=== PATIENT | male | born 1965 | race Two or more races ===

== ENCOUNTER 2016-08-24 15:29 | Outpatient (CLI) | payer BC ==
[2016-08-24 16:48] LABS: BASOPHILS % (AUTO) 0.5 % (0.0-2.0); EOSINOPHILS # (AUTO) 0.4 /CMM (0.0-0.7); EOSINOPHILS % (AUTO) 4.8 % (0.0-6.0); HEMATOCRIT 51 % (39-51); HEMOGLOBIN 16.7 g/dL (13.5-17.5); LYMPHOCYTES # (AUTO) 2.8 /CMM (0.8-4.8); LYMPHOCYTES % (AUTO) 33.1 % (20.0-44.0); MEAN CORPUSCULAR HEMOGLOBIN 30 PG (26.0-33.0); MEAN CORPUSCULAR HGB CONC 33 g/dl (31.0-36.0); MEAN CORPUSCULAR VOLUME 89 fL (80-96); MONOCYTES # (AUTO) 0.4 /CMM (0.1-1.30); MONOCYTES % (AUTO) 4.8 % (2.0-12.0); NEUTROPHILS # (AUTO) 4.8 /CMM (1.8-8.9); NEUTROPHILS % (AUTO) 56.8 % (43.0-81.0); PLATELET COUNT (AUTO) 227 /CMM (150-450); RED BLOOD CELL COUNT(AUTO) 5.67 MIL/uL (4.5-6.0); WHITE BLOOD COUNT (AUTO) 8.4 K/uL (4.3-11.0)
[2016-08-24 17:14] LABS: ADD UA MICROSCOPIC NO; KETONES,URINE NEGATIVE (NEGATIVE); LEUKOCYTE ESTERASE ,URINE NEGATIVE (NEGATIVE); PH,URINE 5.5 (5.0-8.0)
[2016-08-24 17:17] LABS: ALBUMIN 4.3 g/dL (3.4-5.0); BILIRUBIN,TOTAL 0.4 mg/dL (0.2-1.0); CALCIUM, SERUM 9.1 mg/dL (8.5-10.1); POTASSIUM 3.8 mmol/L (3.5-5.1); TOTAL PROTEIN, SERUM 8.5 g/dL (6.4-8.2)
[2016-08-24 17:27] LABS: THYROID STIMULATING HORMONE 0.716 uIU/mL (0.358-3.74)
[2016-08-24 20:45] LABS: HIV-1 p24 ANTIGEN NON REACTIVE (NONREACTIVE); HIV-1/2 ANTIBODY NON REACTIVE (NONREACTIVE)
[2016-08-25 08:14] LABS: VIT D, 25-HYDROXY 26.6 ng/mL (30.0-100.0)
[2016-08-25 09:46] LABS: HEPATITIS C VIRUS AB <0.1 s/co ratio (0.0-0.9)
[2016-08-25 10:26] LABS: *CREATININE RANDOM URINE 167.1 mg/dL (Not Estab.); *MICROALBUMIN/CREATININE RATIO 4.6 mg/g creat (0.0-30.0)
[2016-08-25 13:24] LABS: *HIV 1 AB Negative (Negative); *HIV 2 AB Negative (Negative)
== END 2016-08-24 23:59 | disposition home or self-care (01) ==
LOC: LAB 15:29
PROVIDERS: ATTEND Family Medicine
DX: E11.40 Type 2 diabetes mellitus with diabetic neuropathy, unspecified (principal); E55.9 Vitamin D deficiency, unspecified; K76.0 Fatty (change of) liver, not elsewhere classified
CPT/HCPCS: 36415; 80053-TC; 80061-TC; 81000-TC; 82306; 82728-TC; 82746; 83540-TC; 84436-TC; 84443-TC; 85025-TC; 86701; 86706; 86709-TC; 86803; 87340

== ENCOUNTER → 2016-09-18 | Outpatient (CLI) | payer BC | LOC: US 08:50 | PROVIDERS: ATTEND Family Medicine | DX: K76.0 Fatty (change of) liver, not elsewhere classified (principal); R16.1 Splenomegaly, not elsewhere classified | CPT/HCPCS: 76700-TC ==

== ENCOUNTER 2017-01-29 09:07 | Outpatient (CLI) | payer BC ==
[2017-01-29 10:21] LABS: BASOPHILS % (AUTO) 0.6 % (0.0-2.0); EOSINOPHILS # (AUTO) 0.5 /CMM (0.0-0.7); EOSINOPHILS % (AUTO) 6.5 % (0.0-6.0); HEMATOCRIT 47 % (39-51); LYMPHOCYTES # (AUTO) 2.7 /CMM (0.8-4.8); LYMPHOCYTES % (AUTO) 36.2 % (20.0-44.0); MEAN CORPUSCULAR HEMOGLOBIN 30 PG (26.0-33.0); MEAN CORPUSCULAR HGB CONC 34 g/dl (31.0-36.0); MEAN CORPUSCULAR VOLUME 88 fL (80-96); MONOCYTES # (AUTO) 0.5 /CMM (0.1-1.30); MONOCYTES % (AUTO) 6.3 % (2.0-12.0); NEUTROPHILS # (AUTO) 3.8 /CMM (1.8-8.9); NEUTROPHILS % (AUTO) 50.4 % (43.0-81.0); PLATELET COUNT (AUTO) 214 /CMM (150-450); RED BLOOD CELL COUNT(AUTO) 5.32 MIL/uL (4.5-6.0); WHITE BLOOD COUNT (AUTO) 7.5 K/uL (4.3-11.0)
[2017-01-29 10:24] LABS: ALBUMIN 4.2 g/dL (3.4-5.0); BILIRUBIN,TOTAL 0.4 mg/dL (0.2-1.0); CALCIUM, SERUM 8.7 mg/dL (8.5-10.1); CREATININE 0.8 mg/dL (0.6-1.3); POTASSIUM 4.1 mmol/L (3.5-5.1); TOTAL PROTEIN, SERUM 8.2 g/dL (6.4-8.2)
[2017-01-29 10:25] LABS: APPEARANCE,URINE CLEAR (CLEAR); BILIRUBIN,URINE NEGATIVE (NEGATIVE); BLOOD, URINE NEGATIVE Ery/uL (NEGATIVE); COLOR,URINE YELLOW (YELLOW); KETONES,URINE NEGATIVE (NEGATIVE); LEUKOCYTE ESTERASE ,URINE NEGATIVE (NEGATIVE); NITRITE, URINE NEGATIVE (NEGATIVE); PH,URINE 5.5 (5.0-8.0); PROTEIN,URINE NEGATIVE (NEGATIVE); UGLUCOSE NEGATIVE (NEGATIVE); UROBILINOGEN,URINE 0.2 EU/dL (0.2)
[2017-01-29 10:46] LABS: PROSTATE SPECIFIC ANTIGEN SCR 0.79 ng/mL (0.00-4.00); THYROID STIMULATING HORMONE 0.929 uIU/mL (0.358-3.74)
== END 2017-01-29 23:59 | disposition home or self-care (01) ==
LOC: LAB 09:07
PROVIDERS: ATTEND Family Medicine
DX: Z12.5 Encounter for screening for malignant neoplasm of prostate (principal); Z11.59 Encounter for screening for other viral diseases; E11.9 Type 2 diabetes mellitus without complications; R53.81 Other malaise
CPT/HCPCS: 36415; 80053-TC; 80061-TC; 81000-TC; 84153-TC; 84439-TC; 84443-TC; 85025-TC; 86803

== ENCOUNTER 2017-03-19 08:49 | Outpatient (CLI) | payer BC | END 2017-03-19 23:59 | disposition home or self-care (01) | LOC: CARD 08:49 | PROVIDERS: ATTEND Family Medicine | DX: Z00.01 Encounter for general adult medical examination with abnormal findings (principal); R94.31 Abnormal electrocardiogram [ECG] [EKG] | CPT/HCPCS: 71020-TC; 93307-TC ==

== ENCOUNTER 2017-08-27 09:21 | Outpatient (CLI) | payer BC ==
[2017-08-27 10:41] LABS: APPEARANCE,URINE CLEAR (CLEAR); BILIRUBIN,URINE NEGATIVE (NEGATIVE); BLOOD, URINE NEGATIVE Ery/uL (NEGATIVE); COLOR,URINE YELLOW (YELLOW); KETONES,URINE NEGATIVE (NEGATIVE); LEUKOCYTE ESTERASE ,URINE NEGATIVE (NEGATIVE); NITRITE, URINE NEGATIVE (NEGATIVE); PROTEIN,URINE NEGATIVE (NEGATIVE); UGLUCOSE NEGATIVE (NEGATIVE); UROBILINOGEN,URINE 0.2 EU/dL (0.2)
[2017-08-27 10:54] LABS: ALBUMIN 4.1 g/dL (3.4-5.0); BILIRUBIN,TOTAL 0.5 mg/dL (0.2-1.0); CALCIUM, SERUM 9.3 mg/dL (8.5-10.1); CREATININE 0.8 mg/dL (0.6-1.3); POTASSIUM 4.3 mmol/L (3.5-5.1); TOTAL PROTEIN, SERUM 8.5 g/dL (6.4-8.2)
[2017-08-27 11:00] LABS: T4 (THYROXINE) 8.8 ug/dL (4.7-13.3); THYROID STIMULATING HORMONE 0.888 uIU/mL (0.358-3.74)
== END 2017-08-27 23:59 | disposition home or self-care (01) ==
LOC: LAB 09:21
PROVIDERS: ATTEND Family Medicine
DX: E11.9 Type 2 diabetes mellitus without complications (principal); E55.9 Vitamin D deficiency, unspecified
CPT/HCPCS: 36415; 80053-TC; 80061-TC; 81000-TC; 82306; 84436-TC; 84439-TC; 84443-TC

== ENCOUNTER 2018-02-22 08:23 | Outpatient (CLI) | payer BC ==
[2018-02-22 09:04] LABS: BASOPHILS % (AUTO) 0.5 % (0.0-2.0); EOSINOPHILS % (AUTO) 8.4 % (0.0-6.0); HEMATOCRIT 46 % (39-51); HEMOGLOBIN 14.7 g/dL (13.5-17.5); LYMPHOCYTES # (AUTO) 1.9 /CMM (0.8-4.8); LYMPHOCYTES % (AUTO) 30.1 % (20.0-44.0); MEAN CORPUSCULAR HEMOGLOBIN 29 PG (26.0-33.0); MEAN CORPUSCULAR HGB CONC 32 g/dl (31.0-36.0); MEAN CORPUSCULAR VOLUME 90 fL (80-96); MONOCYTES # (AUTO) 0.4 /CMM (0.1-1.30); MONOCYTES % (AUTO) 6.6 % (2.0-12.0); NEUTROPHILS # (AUTO) 3.4 /CMM (1.8-8.9); NEUTROPHILS % (AUTO) 54.4 % (43.0-81.0); PLATELET COUNT (AUTO) 209 /CMM (150-450); RDW COEFFICIENT OF VARIATION 12.5 (11.5-15.0); RED BLOOD CELL COUNT(AUTO) 5.09 MIL/uL (4.5-6.0); WHITE BLOOD COUNT (AUTO) 6.2 K/uL (4.3-11.0)
[2018-02-22 09:06] LABS: APPEARANCE,URINE CLEAR (CLEAR); BILIRUBIN,URINE NEGATIVE (NEGATIVE); BLOOD, URINE NEGATIVE Ery/uL (NEGATIVE); COLOR,URINE YELLOW (YELLOW); KETONES,URINE NEGATIVE (NEGATIVE); LEUKOCYTE ESTERASE ,URINE NEGATIVE (NEGATIVE); NITRITE, URINE NEGATIVE (NEGATIVE); PH,URINE 5.5 (5.0-8.0); PROTEIN,URINE NEGATIVE (NEGATIVE); UGLUCOSE NEGATIVE (NEGATIVE); UROBILINOGEN,URINE 0.2 EU/dL (0.2)
[2018-02-22 09:43] LABS: ALBUMIN 3.8 g/dL (3.4-5.0); BILIRUBIN,TOTAL 0.3 mg/dL (0.2-1.0); CALCIUM, SERUM 8.5 mg/dL (8.5-10.1); CREATININE 0.9 mg/dL (0.6-1.3); TOTAL PROTEIN, SERUM 7.7 g/dL (6.4-8.2)
[2018-02-22 09:47] LABS: T4 (THYROXINE) 7.7 ug/dL (4.7-13.3); THYROID STIMULATING HORMONE 0.903 uIU/mL (0.358-3.74)
== END 2018-02-22 23:59 | disposition home or self-care (01) ==
LOC: LAB 08:23
PROVIDERS: ATTEND Family Medicine
DX: E11.9 Type 2 diabetes mellitus without complications (principal)
CPT/HCPCS: 36415; 80053-TC; 80061-TC; 81000-TC; 84436-TC; 84439-TC; 84443-TC; 85025-TC

== ENCOUNTER 2019-01-27 11:42 | Outpatient (CLI) | payer BC ==
[2019-01-27 12:25] LABS: BASOPHILS # (AUTO) 0.1 /CMM (0.0-0.2); BASOPHILS % (AUTO) 1.3 % (0.0-2.0); EOSINOPHILS % (AUTO) 6.1 % (0.0-6.0); HEMATOCRIT 45 % (39-51); HEMOGLOBIN 15.5 g/dL (13.5-17.5); LYMPHOCYTES # (AUTO) 2.4 /CMM (0.8-4.8); LYMPHOCYTES % (AUTO) 38.4 % (20.0-44.0); MEAN CORPUSCULAR HGB CONC 34 g/dl (31.0-36.0); MEAN CORPUSCULAR VOLUME 89 fL (80-96); MONOCYTES # (AUTO) 0.4 /CMM (0.1-1.30); MONOCYTES % (AUTO) 6.3 % (2.0-12.0); NEUTROPHILS % (AUTO) 47.9 % (43.0-81.0); PLATELET COUNT (AUTO) 195 /CMM (150-450); WHITE BLOOD COUNT (AUTO) 6.4 K/uL (4.3-11.0)
== END 2019-01-27 23:59 | disposition home or self-care (01) ==
LOC: LAB 11:42
PROVIDERS: ATTEND Family Medicine
DX: I10 Essential (primary) hypertension (principal)
CPT/HCPCS: 36415; 85025-TC

== ENCOUNTER 2020-07-25 09:07 | Outpatient (CLI) | payer BC ==
[2020-07-25 10:07] LABS: BASOPHILS # (AUTO) 0.1 /CMM (0.0-0.2); BASOPHILS % (AUTO) 1.1 % (0.0-2.0); EOSINOPHILS % (AUTO) 7.2 % (0.0-6.0); HEMATOCRIT 47 % (39-51); HEMOGLOBIN 15.5 g/dL (13.5-17.5); LYMPHOCYTES # (AUTO) 2.4 /CMM (0.8-4.8); LYMPHOCYTES % (AUTO) 39.5 % (20.0-44.0); MEAN CORPUSCULAR HGB CONC 33 g/dl (31.0-36.0); MEAN CORPUSCULAR VOLUME 91 fL (80-96); MONOCYTES # (AUTO) 0.5 /CMM (0.1-1.30); MONOCYTES % (AUTO) 7.6 % (2.0-12.0); NEUTROPHILS # (AUTO) 2.7 /CMM (1.8-8.9); NEUTROPHILS % (AUTO) 44.6 % (43.0-81.0); PLATELET COUNT (AUTO) 203 /CMM (150-450); RED BLOOD CELL COUNT(AUTO) 5.16 MIL/uL (4.5-6.0); WHITE BLOOD COUNT (AUTO) 6.1 K/uL (4.3-11.0)
[2020-07-25 10:10] LABS: BILIRUBIN,URINE NEGATIVE (NEGATIVE); COLOR,URINE YELLOW (YELLOW); LEUKOCYTE ESTERASE ,URINE NEGATIVE (NEGATIVE); NITRITE, URINE NEGATIVE (NEGATIVE); PROTEIN,URINE NEGATIVE (NEGATIVE); UGLUCOSE NEGATIVE (NEGATIVE); UROBILINOGEN,URINE 0.2 EU/dL (0.2)
[2020-07-25 10:15] LABS: ALBUMIN 4.1 g/dL (3.4-5.0); BILIRUBIN,TOTAL 0.4 mg/dL (0.2-1.0); CALCIUM, SERUM 9.3 mg/dL (8.5-10.1); TOTAL PROTEIN, SERUM 8.6 g/dL (6.4-8.2)
[2020-07-25 10:25] LABS: THYROID STIMULATING HORMONE 1.106 uIU/mL (0.358-3.74)
== END 2020-07-25 23:59 | disposition home or self-care (01) ==
LOC: LAB 09:07
PROVIDERS: ATTEND Family Medicine
DX: I10 Essential (primary) hypertension (principal); E11.9 Type 2 diabetes mellitus without complications; E78.2 Mixed hyperlipidemia; E55.9 Vitamin D deficiency, unspecified; Z79.899 Other long term (current) drug therapy
CPT/HCPCS: 36415; 80053-TC; 80061-TC; 82306; 84439-TC; 84443-TC; 85025-TC; 87086-TC

== ENCOUNTER 2021-01-22 16:24 | Emergency (ER) | payer BC ==
[~2021-01-22] VITALS: Ht 167.6 cm; Wt 111.1 kg
--- NOTE | 2021-01-22 16:56 | NUR ---
PT BIB C/O DIARRHEA AND ABDOMINAL CRAMPING FOR THE PAST 5 DAYS. STAES HAPPEN AFTER EATING SHRIMP. DENIES NAUSEA AND VOMITING. STABLE VITALS. NAD NOTED. AWAITING MD CABRERA.
--- NOTE | 2021-01-22 17:03 | NUR ---
DR ROSE AT BEDSIDE FOR EVAL.
--- NOTE | 2021-01-22 17:40 | NUR ---
IV LINE STARTED BLOOD DRAWN AND SENT TO LAB.
[2021-01-22 17:47] LABS: HEMOGLOBIN 14.1 g/dL (13.5-17.5); LYMPHOCYTES # (AUTO) 1.6 K/uL (0.8-4.8); MEAN CORPUSCULAR HGB CONC 33 g/dl (31.0-36.0); MEAN CORPUSCULAR VOLUME 90 fL (80-96); NEUTROPHILS # (AUTO) 2.2 K/uL (1.8-8.9); RED BLOOD CELL COUNT(AUTO) 4.73 MIL/uL (4.5-6.0)
[2021-01-22 17:52] LABS: BASOPHILS % (AUTO) 0.6 % (0.0-2.0); EOSINOPHILS % (AUTO) 6.2 % (0.0-6.0); HEMATOCRIT 43 % (39-51); LYMPHOCYTES % (AUTO) 30.9 % (20.0-44.0); MONOCYTES # (AUTO) 0.9 K/uL (0.1-1.30); MONOCYTES % (AUTO) 18.6 % (2.0-12.0); NEUTROPHILS % (AUTO) 43.7 % (43.0-81.0); PLATELET COUNT (AUTO) 229 K/uL (150-450)
[2021-01-22 17:54] LABS: BILIRUBIN,URINE Negative (NEGATIVE); COLOR,URINE YELLOW (YELLOW); LEUKOCYTE ESTERASE ,URINE Negative (NEGATIVE); NITRITE, URINE Negative (NEGATIVE); PH,URINE 5.5 (5.0-8.0); PROTEIN,URINE Negative (NEGATIVE); UGLUCOSE Negative (NEGATIVE); UROBILINOGEN,URINE 0.2 EU/dL (0.2)
[2021-01-22] MEDS ORDERED: IV NS 0.9% 1,000 ML IV ONE (18:00)
[2021-01-22] MEDS ORDERED: KETOROLAC TROMETHAMINE INJ 30 MG/ML VIAL IV ONE (18:00)
[2021-01-22 18:02] LABS: ALBUMIN 3.4 g/dL (3.4-5.0); BILIRUBIN,DIRECT 0.1 mg/dL (0.0-0.2); BILIRUBIN,TOTAL 0.3 mg/dL (0.2-1.0); CALCIUM, SERUM 8.9 mg/dL (8.5-10.1); POTASSIUM 3.8 mmol/L (3.5-5.1); TOTAL PROTEIN, SERUM 7.5 g/dL (6.4-8.2)
[2021-01-22] MEDS ORDERED: KETOROLAC TROMETHAMINE 15 MG/ML VIAL ONE (18:06)
[2021-01-22 18:19] LABS: BACTERIA,URINE Rare /HPF (None Seen); WBC,URINE 0-2 /HPF (0-3)
[2021-01-22 18:20] LABS: MUCUS,URINE Few /LPF (None Seen); SQUAMOUS EPITHELIAL CELL,UR 0-2 /HPF (None Seen)
[2021-01-22] MEDS ORDERED: IOHEXOL-300 100 ML VIAL IV ONE (18:27)
[2021-01-22] MEDS ORDERED: IV NS 0.9% 250 ML IV ONE (18:27)
[2021-01-22 18:36] LABS: EOSINOPHILS % (MANUAL) 7 % (0-4); LYMPHOCYTES % (MANUAL) 30 % (16-48); MONOCYTES % (MANUAL) 18 % (0-11.0); NEUTROPHILS % (MANUAL) 45 (42-76)
[2021-01-22] MEDS ORDERED: LOPE2CAP40 PO (20:19)
[2021-01-22] MEDS ORDERED: METR500T PO (20:20)
[2021-01-22] MEDS ORDERED: CIPR500T5 PO (20:20)
--- NOTE | 2021-01-22 20:35 | NUR ---
IV removed. Catheter intact and site benign. Pressure and 4x4 applied to site. No bleeding noted.Patient discharged to home in stable condition. rx and Written and verbal after care instructions given. Patient verbalizes understanding of instruction.
[2021-01-22 20:50] VITALS: BP 116/75
== END 2021-01-22 20:50 | disposition home or self-care (01) ==
LOC: ER 16:29
DX: K52.9 Noninfective gastroenteritis and colitis, unspecified (principal); E11.9 Type 2 diabetes mellitus without complications; E78.5 Hyperlipidemia, unspecified; Z79.899 Other long term (current) drug therapy
CPT/HCPCS: 36415; 74177; 76705; 80048; 80076; 81001; 83690; 85007; 85025; 96361; 96374; 99285; J1885; J7030; J7050; Q9967

== ENCOUNTER 2021-05-08 22:34 | Inpatient (IN) | payer BC ==
[~2021-05-08] VITALS: Ht 167.6 cm; Wt 114.8 kg
[~2021-05-08 22:34] MED LIST: CIPR500T5 PO; LOPE2CAP40 PO; METR500T PO
--- NOTE | 2021-05-08 23:34 | NUR ---
PT BIBS C/O LEFT FLANK PAIN X2 WEEKS. PATIENT DENIES ANY NAUSEA VOMITTING OR DIARRHEA. PT AFEBRILE. PT IS ALERT AND ORIENTED X3. AMBULATORY WITH NON LABORED BREATHING.
[2021-05-08] MEDS ORDERED: KETOROLAC TROMETHAMINE INJ 30 MG/ML VIAL ONE (23:37)
--- NOTE | 2021-05-08 23:43 | NUR ---
BLOOD COLLECTED AND SENT TO LAB
--- NOTE | 2021-05-08 23:43 | NUR ---
URINE COLLECTED AND SENT TO LAB
[2021-05-09] MEDS ORDERED: IV NS 0.9% 1,000 ML BAG IV ONE
[2021-05-09] MEDS ORDERED: KETOROLAC TROMETHAMINE INJ 30 MG/ML VIAL IV ONE
[2021-05-09 00:04] LABS: BILIRUBIN,URINE NEGATIVE (NEGATIVE); COLOR,URINE YELLOW (YELLOW); LEUKOCYTE ESTERASE ,URINE NEGATIVE (NEGATIVE); NITRITE, URINE NEGATIVE (NEGATIVE); PROTEIN,URINE NEGATIVE (NEGATIVE); UGLUCOSE 100 MG/DL mg/dL (NEGATIVE); UROBILINOGEN,URINE 0.2 EU/dL (0.2)
[2021-05-09 00:05] LABS: BASOPHILS # (AUTO) 0.1 K/uL (0.0-0.2); BASOPHILS % (AUTO) 0.7 % (0.0-2.0); EOSINOPHILS % (AUTO) 7.1 % (0.0-6.0); HEMATOCRIT 44 % (39-51); HEMOGLOBIN 14.6 g/dL (13.5-17.5); LYMPHOCYTES # (AUTO) 3.2 K/uL (0.8-4.8); LYMPHOCYTES % (AUTO) 40.1 % (20.0-44.0); MEAN CORPUSCULAR HGB CONC 33 g/dl (31.0-36.0); MEAN CORPUSCULAR VOLUME 91 fL (80-96); MONOCYTES # (AUTO) 0.7 K/uL (0.1-1.30); MONOCYTES % (AUTO) 9.2 % (2.0-12.0); NEUTROPHILS # (AUTO) 3.4 K/uL (1.8-8.9); NEUTROPHILS % (AUTO) 42.9 % (43.0-81.0); PLATELET COUNT (AUTO) 211 K/uL (150-450); RED BLOOD CELL COUNT(AUTO) 4.82 MIL/uL (4.5-6.0); WHITE BLOOD COUNT (AUTO) 7.9 K/uL (4.3-11.0)
[2021-05-09 00:30] LABS: ALBUMIN 3.9 g/dL (3.4-5.0); BILIRUBIN,TOTAL 0.3 mg/dL (0.2-1.0); CALCIUM, SERUM 8.7 mg/dL (8.5-10.1); CREATININE 0.8 mg/dL (0.6-1.3); POTASSIUM 4.2 mmol/L (3.5-5.1); TOTAL PROTEIN, SERUM 8.3 g/dL (6.4-8.2)
[2021-05-09] MEDS ORDERED: IBUP-1957 PO (00:31)
--- NOTE | 2021-05-09 01:00 | NUR ---
COVID SWAB DONE AND SENT TO LAB
[2021-05-09] MEDS ORDERED: Z GUARD REMEDY 2 OZ OINT TP PRN (02:00)
[2021-05-09] MEDS ORDERED: MAG HYDROX/AL HYDROX/SIMETH 30 ML UDC PO PRN (02:00)
[2021-05-09] MEDS ORDERED: MAGNESIUM HYDROXIDE 30 ML UDC PO PRN (02:00)
[2021-05-09] MEDS ORDERED: ONDANSETRON HCL/PF 4 MG/2 ML VIAL IVP PRN (02:00)
[2021-05-09] MEDS ORDERED: ZOLPIDEM TARTRATE 5 MG TABLET PO PRN (02:00)
[2021-05-09] MEDS ORDERED: IV NS 0.9% 1,000 ML IV ONE (02:00)
[2021-05-09] MEDS ORDERED: ACETAMINOPHEN 325 MG TABLET PO PRN (02:00)
--- NOTE | 2021-05-09 02:49 | NUR ---
MS 315-2
--- NOTE | 2021-05-09 02:57 | NUR ---
REPORT GIVEN TO ROSEY BURNS
--- NOTE | 2021-05-09 03:10 | NUR ---
PT IS GOING UP TO UNIT ON GURNEY WITH EMT AT BEDSIDE IN STABLE CONDITION.
--- NOTE | 2021-05-09 03:12 | NUR ---
MS/FINISH MACHINE TENDER NOTE RECEIVED PT FROM E.R. VIA DINO TO [id number]. PT AWAKE, A/OX4, AMBULATORY WITH STEADY GAIT. HE DENIES PAIN AT THIS TIME, STATING THAT THE PAIN MED GIVEN TO HIM FROM THE E.R. RELIEVED HIS L-FLANK PAIN. RESPIRATIONS EVEN/UNLABORED. ON ROOM AIR. IV SITE: R-AC #18G INTACT/PATENT/FLUSHES WELL. ORIENTED TO ROOM, STAFF, AND SAFETY INSTRUCTIONS PROVIDED. PT VERBALIZED UNDERSTANDING. BELONGINGS CHECKED AND ACCOUNTED FOR. PT IN NO ACUTE DISTRESS. SAFETY MEASURES IN PLACE, BED IN LOWEST LOCKED POSITION, S/R UPX2, CALL LIGHT WITHIN REACH. WILL CONT TO MONITOR.
[2021-05-09 03:56] VITALS: BP 111/71
--- NOTE | 2021-05-09 04:10 | NUR ---
PT C/O 7/10 PAIN PER PT REQUEST MORPHINE 1MG/0.5ML IV Q6HR PRN ADMINISTERED AT THIS TIME PER ORDER. WILL CONTINUE TO MONITOR.
[2021-05-09] MEDS ORDERED: METF-442 PO (05:11)
[2021-05-09] MEDS ORDERED: PIOG30TA10 PO (05:11)
[2021-05-09] MEDS ORDERED: ATOR10TA PO (05:11)
[2021-05-09] MEDS ORDERED: AMLO-212 PO (05:11)
[2021-05-09] MEDS ORDERED: GLIP10TA11 PO (05:11)
[2021-05-09] MEDS ORDERED: LISI20TA30 PO (05:11)
[2021-05-09 06:49] LABS: BASOPHILS % (AUTO) 0.8 % (0.0-2.0); HEMATOCRIT 41 % (39-51); LYMPHOCYTES % (AUTO) 34.5 % (20.0-44.0); MEAN CORPUSCULAR HGB CONC 34 g/dl (31.0-36.0); MEAN CORPUSCULAR VOLUME 91 fL (80-96); MONOCYTES # (AUTO) 0.4 K/uL (0.1-1.30); MONOCYTES % (AUTO) 7.6 % (2.0-12.0); NEUTROPHILS % (AUTO) 51.1 % (43.0-81.0); PLATELET COUNT (AUTO) 187 K/uL (150-450); RED BLOOD CELL COUNT(AUTO) 4.52 MIL/uL (4.5-6.0); WHITE BLOOD COUNT (AUTO) 5.9 K/uL (4.3-11.0)
--- NOTE | 2021-05-09 06:54 | NUR ---
MS/RN CLOSING NOTES PT RESTING IN BED, EASILY AROUSABLE, DENIES PAIN AT THIS TIME. RESPIRATIONS EVEN/UNLABORED. ABLE TO SLEEP WELL. NO ACUTE EVENTS NOTED. NPO OBSERVED ORDERED. SAFETY MEASURES MAINTAINED. ALL NEEDS ATTENDED TO.
[2021-05-09 07:12] LABS: CALCIUM, SERUM 8.4 mg/dL (8.5-10.1); CREATININE 0.8 mg/dL (0.6-1.3); PHOSPHORUS 3.6 mg/dL (2.5-4.9); POTASSIUM 4.2 mmol/L (3.5-5.1)
--- NOTE | 2021-05-09 07:23 | NUR ---
RN OPENING NOTES Patient seen comfortably lying in bed, no SOB, no apparent distress noted, breathing even and unlabored, denies any pain or discomfort at this time. Call light left within reach, safety precautions in place, brakes locked, side rails up X 2, will monitor closely for any changes.
[2021-05-09 08:00] VITALS: BP 100/63
[2021-05-09 16:00] VITALS: BP 99/62
--- NOTE | 2021-05-09 16:26 | NUR ---
Patient currently NPO and already completed previous intravenous fluid, hospitalist made aware with new orders for IVF 0.9 NS @ 100ml/hr, orders noted and carried out, pharmacy and patient made aware. IV site free from any infiltration, no redness, no swelling noted.
[2021-05-09] MEDS: IV NS 0.9% 1,000 ML IV PRN (17:31)
--- NOTE | 2021-05-09 18:39 | NUR ---
RN CLOSING NOTES Patient lying in bed, AO X 4, no SOB, breathing even and unlabored, no apparent distress noted. Patient is NPO at this time, no s/s of hypo/hyperglycemia, no tremors, no change in level of consciousness. Abdominal bowel sounds present in all quadrants, no grimacing when abdomen palpated. Kept clean and dry, all needs attended, call light left within reach, safety precautions in place, brakes locked, side rails up X 2, will endorse to next shift for continuity of care.
--- NOTE | 2021-05-09 18:50 | NUR ---
Received a phone order form hospitalist as follows: Morphine 1mg IV push every 6 hours as needed for pain, orders read back, noted and carried out, pharmacy and patient made aware
--- NOTE | 2021-05-09 19:00 | NUR ---
MS RN OPENING NOTE RECEIVED PT IN BED, RESTING. A/O X4. PT IS ON ROOM AIR, NO SOB OR RESPIRATORY DISTRESS NOTED, NO C/O PAIN AT THIS TIME. RESPIRATIONS EVEN AND UNLABORED. IV ACCESS NOTED IN RIGHT AC G#18 INTACT, PATENT AND FLUSHING WELL, NS INFUSING AT 100ML/HR. FALL AND SAFETY MEASURES IN PLACE AND MAINTAINED AT ALL TIMES. BED ALARM, BED IN LOW AND LOCKED POSITION, HOB ELEVATED TO SEMI FOWLERS POSITION, CALL LIGHT AND TABLE WITHIN REACH. SIDE RAILS UP X2. WILL CONTINUE WITH PLAN OF CARE.
[2021-05-09 20:00] VITALS: BP 117/70
[2021-05-09] MEDS: MORPHINE SULFATE INJ 2 MG/ML DISP.SYRIN IV PRN (20:04)
--- NOTE | 2021-05-09 20:04 | NUR ---
PT C/O 7/10 PAIN PER PT REQUEST MORPHINE 1MG/0.5ML IV Q6HR PRN ADMINISTERED AT THIS TIME PER ORDER. WILL CONTINUE TO MONITOR.
[2021-05-10] MEDS: MORPHINE SULFATE INJ 2 MG/ML DISP.SYRIN IV PRN ×2 (04:12→10:16)
--- NOTE | 2021-05-10 06:00 | NUR ---
PT IS NPO
[2021-05-10] MEDS: IV NS 0.9% 1,000 ML IV PRN (06:07)
--- NOTE | 2021-05-10 06:30 | NUR ---
MS RN CLOSING NOTE PT REMAINED STABLE THROUGHOUT SHIFT. WILL ENDORSE TO ONCOMING NURSE FOR AME.
[2021-05-10 07:34] LABS: BASOPHILS % (AUTO) 0.9 % (0.0-2.0); EOSINOPHILS % (AUTO) 7.5 % (0.0-6.0); HEMATOCRIT 43 % (39-51); HEMOGLOBIN 14.2 g/dL (13.5-17.5); LYMPHOCYTES # (AUTO) 1.9 K/uL (0.8-4.8); LYMPHOCYTES % (AUTO) 33.7 % (20.0-44.0); MEAN CORPUSCULAR HGB CONC 33 g/dl (31.0-36.0); MEAN CORPUSCULAR VOLUME 92 fL (80-96); MONOCYTES # (AUTO) 0.4 K/uL (0.1-1.30); MONOCYTES % (AUTO) 6.8 % (2.0-12.0); NEUTROPHILS # (AUTO) 2.9 K/uL (1.8-8.9); NEUTROPHILS % (AUTO) 51.1 % (43.0-81.0); PLATELET COUNT (AUTO) 188 K/uL (150-450); RED BLOOD CELL COUNT(AUTO) 4.73 MIL/uL (4.5-6.0); WHITE BLOOD COUNT (AUTO) 5.6 K/uL (4.3-11.0)
--- NOTE | 2021-05-10 07:43 | NUR ---
MS RN OPENING NOTE RECEIVED PT AWAKE IN BED. A/O X4. PT IS STABLE ON ROOM AIR WITH NO SOB OR RESPIRATORY DISTRESS NOTED. NO C/O PAIN OR DISCOMFORT AT THIS TIME. IV ACCESS IN RAC #18 INFUSING NS AT 100ML/HR, INTACT AND PATENT. PT MAINTAINED NPO AT THIS TIME. SAFETY PRECAUTIONS MAINTAINED. BED IN LOWEST LOCKED POSITION, HOB ELEVATED, SIDE RAILS UP X2. CALL LIGHT AND TABLE WITHIN REACH. WILL CONTINUE TO MONITOR.
[2021-05-10 08:00] VITALS: BP 107/62
[2021-05-10 08:11] LABS: CALCIUM, SERUM 8.4 mg/dL (8.5-10.1); CREATININE 0.8 mg/dL (0.6-1.3); PHOSPHORUS 3.1 mg/dL (2.5-4.9); POTASSIUM 3.8 mmol/L (3.5-5.1)
--- NOTE | 2021-05-10 10:16 | NUR ---
RN NOTE- PAIN PT COMPLAINED OF ACHING PAIN IN LEFT POSTERIOR BACK. RATED 9/10 ON PAIN SCALE. VSS. PER PATIENT REQUEST, ADMINISTERED MORPHINE 1 MG IV Q6H PRN ORDERED. WILL CONTINUE TO MONITOR.
--- NOTE | 2021-05-10 13:00 | NUR ---
MS SOFTWARE PACKAGER NOTE PT DISCHARGED HOME WITH SELF CARE AT THIS TIME. PT IS MEDICALLY STABLE AND CLEARED FOR DISCHARGE BY MILA SHEIKH. ALL PT CARE, NEEDS, MEDICATIONS, AND TREATMENT ADMINISTERED PER ORDER. DISCHARGE INSTRUCTIONS PROVIDED TO PT. PT VERBALIZED UNDERSTANDING. PT KEPT CLEAN AND DRY. BELONGINGS LIST ACCOUNTED FOR AND SIGNED BY PT. IV ACCESS REMOVED, PRESSURE APPLIED, AND SECURED WITH GAUZE AND TAPE. NO SIGNS OF BLEEDING NOTED. ID BAND REMOVED. ROSEY DURBIN AND ROSEY CORTEZ ACCOMPANIED PT TO LOBBY. CHARGE NURSE DANNA AND MILA SHEIKH AWARE.
== END 2021-05-10 13:00 | disposition home or self-care (01) | DRG 438 ==
LOC: ER 22:38 → MED 05-09 03:01
PROVIDERS: ADMIT Registered Nurse; ATTEND Registered Nurse
DX: K85.90 Acute pancreatitis without necrosis or infection, unspecified (principal); E43 Unspecified severe protein-calorie malnutrition; Z68.41 Body mass index [BMI] 40.0-44.9, adult; E11.9 Type 2 diabetes mellitus without complications; Z20.822 Contact with and (suspected) exposure to COVID-19; Z79.899 Other long term (current) drug therapy; K76.0 Fatty (change of) liver, not elsewhere classified; G89.29 Other chronic pain; E66.01 Morbid (severe) obesity due to excess calories; K57.90 Diverticulosis of intestine, part unspecified, without perforation or abscess without bleeding
CPT/HCPCS: 36415; 80048-TC; 80061-TC; 80076-TC; 83690-TC; 83735-TC; 84100-TC; 85025-TC; 87081-TC; C9803; G0378; J1885; J2270; J7030

== ENCOUNTER 2021-05-23 13:07 | Outpatient (CLI) | payer BC ==
[~2021-05-23 13:07] MED LIST changes: +AMLO-212 PO; +ATOR10TA PO; +GLIP10TA11 PO; +IBUP-1957 PO; +LISI20TA30 PO; +METF-442 PO; +PIOG30TA10 PO
== END 2021-05-23 23:59 | disposition home or self-care (01) ==
LOC: MRI 13:07
PROVIDERS: ATTEND Family Medicine
DX: M47.817 Spondylosis without myelopathy or radiculopathy, lumbosacral region (principal); M51.27 Other intervertebral disc displacement, lumbosacral region; M48.07 Spinal stenosis, lumbosacral region
CPT/HCPCS: 72148-TC

== ENCOUNTER 2021-06-13 12:07 | Outpatient (CLI) | payer BC ==
[2021-06-13] MEDS ORDERED: GADOTERATE MEGLUMINE 10 MMOL/20 ML VIAL IV ONE (17:09)
== END 2021-06-13 23:59 | disposition home or self-care (01) ==
LOC: MRI 12:07
PROVIDERS: ATTEND Family Medicine
DX: R16.0 Hepatomegaly, not elsewhere classified (principal)
CPT/HCPCS: 74183; A9575

== ENCOUNTER 2021-10-22 10:31 | Outpatient (CLI) | payer BC | END 2021-10-22 23:59 | disposition home or self-care (01) | LOC: RAD 10:31 | PROVIDERS: ATTEND Family Medicine | DX: M77.52 Other enthesopathy of left foot and ankle (principal); M19.072 Primary osteoarthritis, left ankle and foot; M25.562 Pain in left knee | CPT/HCPCS: 73562; 73610-TC; 73630-TC ==

== ENCOUNTER 2021-10-31 10:53 | Outpatient (CLI) | payer BC | END 2021-10-31 23:59 | disposition home or self-care (01) | LOC: CT 10:53 | PROVIDERS: ATTEND Family Medicine | DX: M76.61 Achilles tendinitis, right leg (principal) | CPT/HCPCS: 73700-TC ==

== ENCOUNTER 2021-11-27 13:09 | Outpatient (CLI) | payer BC | END 2021-11-27 23:59 | disposition home or self-care (01) | LOC: MRI 13:09 | PROVIDERS: ATTEND Family Medicine | DX: S83.242A Other tear of medial meniscus, current injury, left knee, initial encounter (principal); M76.52 Patellar tendinitis, left knee; X58.XXXA Exposure to other specified factors, initial encounter; Y93.89 Activity, other specified; Y92.89 Other specified places as the place of occurrence of the external cause; Y99.8 Other external cause status | CPT/HCPCS: 73721-TC ==

== ENCOUNTER 2022-08-24 10:36 | Outpatient (CLI) | payer BC ==
[2022-08-24 11:44] LABS: HEMATOCRIT 46 % (39-51); MEAN CORPUSCULAR HGB CONC 33 g/dl (31.0-36.0); MEAN CORPUSCULAR VOLUME 90 fL (80-96); PLATELET COUNT (AUTO) 197 K/uL (150-450); RED BLOOD CELL COUNT(AUTO) 5.06 MIL/uL (4.5-6.0); WHITE BLOOD COUNT (AUTO) 7.1 K/uL (4.3-11.0)
[2022-08-24 11:57] LABS: ALBUMIN 3.9 g/dL (3.4-5.0); BILIRUBIN,TOTAL 0.3 mg/dL (0.2-1.0); CALCIUM, SERUM 9.1 mg/dL (8.5-10.1); CREATININE 0.9 mg/dL (0.6-1.3); POTASSIUM 4.3 mmol/L (3.5-5.1); TOTAL PROTEIN, SERUM 8.1 g/dL (6.4-8.2)
[2022-08-24 12:04] LABS: BILIRUBIN,URINE NEGATIVE (NEGATIVE); COLOR,URINE YELLOW (YELLOW); LEUKOCYTE ESTERASE ,URINE NEGATIVE (NEGATIVE); NITRITE, URINE NEGATIVE (NEGATIVE); PROTEIN,URINE NEGATIVE (NEGATIVE); UGLUCOSE NEGATIVE (NEGATIVE); UROBILINOGEN,URINE 0.2 EU/dL (0.2)
[2022-08-24 12:15] LABS: PROSTATE SPECIFIC ANTIGEN SCR 1.12 ng/mL (0.00-4.00); THYROID STIMULATING HORMONE 0.933 uIU/mL (0.358-3.74)
[2022-08-24 13:20] LABS: EOSINOPHILS % (MANUAL) 8 % (0-4); LYMPHOCYTES % (MANUAL) 26 % (16-48); MONOCYTES % (MANUAL) 14 % (0-11.0); NEUTROPHILS % (MANUAL) 52 (42-76)
== END 2022-08-24 23:59 | disposition home or self-care (01) ==
LOC: LAB 10:36
PROVIDERS: ATTEND Family Medicine
DX: Z00.01 Encounter for general adult medical examination with abnormal findings (principal); E11.65 Type 2 diabetes mellitus with hyperglycemia
CPT/HCPCS: 36415; 80053-TC; 80061-TC; 82306; 83735-TC; 84153-TC; 84439-TC; 84443-TC; 84481; 84550-TC; 85025-TC

== ENCOUNTER 2023-12-02 05:31 | Emergency (ER) | payer BC ==
[~2023-12-02] VITALS: Ht 177.8 cm; Wt 74.8 kg
[2023-12-02] MEDS ORDERED: KETOROLAC TROMETHAMINE 15 MG/ML VIAL ONE (07:02)
[2023-12-02] MEDS ORDERED: LIDOCAINE 5% (PATCH) 1 EA PATCH TP ONE (07:03)
[2023-12-02] MEDS ORDERED: CYCLOBENZAPRINE 10 MG TABLET ONE (07:03)
[2023-12-02] MEDS ORDERED: ACETAMINOPHEN 325 MG TABLET ONE (07:03)
[2023-12-02] MEDS: ACETAMINOPHEN 325 MG TABLET PO ONE (07:20)
[2023-12-02] MEDS: KETOROLAC TROMETHAMINE 15 MG/ML VIAL IM ONE (07:20)
[2023-12-02] MEDS: LIDOCAINE 5% (PATCH) 1 EA PATCH TP STA (07:20)
[2023-12-02] MEDS: CYCLOBENZAPRINE 10 MG TABLET PO ONE (07:20)
[2023-12-02] MEDS ORDERED: CYCL5TAB PO (07:22)
[2023-12-02] MEDS ORDERED: IBUP-1955 PO (07:22)
[2023-12-02] MEDS ORDERED: LIDO30AD10 TP (07:22)
[2023-12-02] MEDS ORDERED: HYDROCODONE/APAP 5/325MG TABLET ONE (08:14)
[2023-12-02] MEDS: HYDROCODONE/APAP 5/325MG TABLET PO ONE (08:22)
[2023-12-02 08:23] VITALS: BP 119/89; TEMP 97.6; O2SAT 98
== END 2023-12-02 08:23 | disposition home or self-care (01) ==
LOC: ER 05:35
DX: S76.011A Strain of muscle, fascia and tendon of right hip, initial encounter (principal); M25.551 Pain in right hip; I10 Essential (primary) hypertension; E78.5 Hyperlipidemia, unspecified; E11.9 Type 2 diabetes mellitus without complications; Z60.2 Problems related to living alone; Z79.899 Other long term (current) drug therapy; X58.XXXA Exposure to other specified factors, initial encounter; Y93.89 Activity, other specified; Y92.89 Other specified places as the place of occurrence of the external cause; Y99.8 Other external cause status
CPT/HCPCS: 99284; 96372; 73502; J1885

== ENCOUNTER 2024-08-31 21:16 | Emergency (ER) | payer BC ==
[~2024-08-31] VITALS: Ht 180.3 cm; Wt 104.3 kg
[~2024-08-31 21:16] MED LIST changes: +CYCL5TAB PO; +IBUP-1955 PO; +LIDO30AD10 TP
[2024-08-31 22:08] VITALS: BP 134/76; TEMP 98.2; O2SAT 98
== END 2024-08-31 22:09 | disposition home or self-care (01) ==
LOC: ER 21:18
DX: M25.571 Pain in right ankle and joints of right foot (principal); R26.2 Difficulty in walking, not elsewhere classified; E11.9 Type 2 diabetes mellitus without complications; E78.5 Hyperlipidemia, unspecified; I10 Essential (primary) hypertension; Z79.1 Long term (current) use of non-steroidal anti-inflammatories (NSAID); Z79.84 Long term (current) use of oral hypoglycemic drugs; Z79.899 Other long term (current) drug therapy; Z60.2 Problems related to living alone
CPT/HCPCS: 73610-TC